=== PATIENT | female | born 1945 | race Caucasian/White ===

== ENCOUNTER 2023-12-10 12:31 | Outpatient (REF) | payer MEDICARE, SELFPAY ==
--- NOTE | ~2023-12-10 | US_ITS ---
EXAMINATION: VenaSeal ablation right GSV CLINICAL INFORMATION: Symptomatic varicose veins in the right lower extremity. Symptoms include pain and edema (C4) COMPARISON: Venous insufficiency ultrasound performed at outside institution demonstrating clinically significant reflux of a dilated right GSV TECHNIQUE/FINDINGS: Details of the procedure and possible complications were explained to the patient informed consent was obtained. Preprocedure time out was performed. The patient was placed supine on the procedure table. A preliminary ultrasound was performed which demonstrated dilated greater saphenous vein (GSV). A site was marked on the right medial leg below the knee. The right leg was sterily prepped and draped. 1% lidocaine was administered for local anesthesia. A puncture was made into the GSV below the knee with a 21 gauge micropuncture needle under continuous ultrasound guidance with permanent recordings and direct visualization of the needle entry into the vein lumen. The needle was exchanged for a coaxial dilator over a 0.018 guidewire. The inner dilator and 0.018 guidewire were removed and a 0.035 guidewire was advanced to the saphenofemoral junction (SFJ). The outer dilator was then exchanged for the 4 Fr VenaSeal catheter which was positioned approximately 12 cm from the SFJ. At this point the glue was delivered along the length of the GSV in aliquots while retracting the catheter/delivery device and applying forward compression. Total delivery length was 35 cm. The catheter/delivery device was removed and hemostasis was achieved with manual compression. A sterile dressing was applied. The patient tolerated the procedure well. . US/US venaseal vein closure IMPRESSION: Varithena Ablation of RIGHT GSV Follow-up ultrasound in 5-10 days. Anticipate staged intervention of bilateral lower extremity varicose veins
[2023-12-10] MEDS: Lidocaine HCl 1 % MPF 5 ML VIAL SUBCUT (14:59)
== END 2023-12-10 12:32 | disposition home or self-care (01) ==
LOC: HO.US 12:31
PROVIDERS: PCP Nurse Practitioner Family; Visit Provider Student in an Organized Health Care Education/Training Program
DX: R22.41 Localized swelling, mass and lump, right lower limb (principal); I83.11 Varicose veins of right lower extremity with inflammation
CPT/HCPCS: 36482

== ENCOUNTER → 2023-12-10 12:36 | Outpatient (BNV) | payer MEDICARE, SELFPAY | PROVIDERS: PCP Nurse Practitioner Family; Visit Provider Student in an Organized Health Care Education/Training Program | DX: I83.811 Varicose veins of right lower extremity with pain (principal) | CPT/HCPCS: 36482 ==

== ENCOUNTER 2024-02-26 15:59 | Outpatient (AMB) | payer MEDICARE, SELFPAY ==
--- NOTE | 2024-02-26 16:19 | AM.OFFWIN_ITS ---
Intake Vital Signs 02/26/24 16:20 Height 4 ft 11 in Weight 143 lb BMI 28.9 BP 146/90 H Blood Pressure Location Lt brachial Position Sitting Pulse 64 Pulse Source Pulse Oximeter Temp 98.3 F Temp Source Oral Pulse Oximetry (%) 96 Oxygen Delivery Method Room Air Intake Visit Reasons: EP-breathing problem Intake Note: pt c/o SOB. Ongoing. Worse at night Patient Tobacco Use Status: Former Tobacco user Allergies acetaminophen [From Percocet] Allergy (Intermediate, Verified 02/26/24 16:26) Weakness oxycodone [From Percocet] Allergy (Intermediate, Verified 02/26/24 16:26) Weakness Sulfa (Sulfonamide Antibiotics) Allergy (Intermediate, Verified 02/26/24 16:26) Rash sulfamethoxazole [From Bactrim] Allergy (Mild, Verified 02/26/24 16:26) Rash trimethoprim [From Bactrim] Allergy (Mild, Verified 02/26/24 16:26) Rash diphenhydramine [From Benadryl] Adverse Reaction (Intermediate, Verified 02/26/24 16:26) Palpitations Do you need a note to return to daycare/school/sports/work: No HPI HPI Comments History of Present Illness Details Patient is an 79-year-old female with a past medical history of COPD on Advair complaining of shortness of breath which has been getting worse over the last few days. She admits to also having a cough. She states she has been taki ng her Advair twice daily and uses albuterol inhaler as needed. She does see a sales marketing coordinator, Dr. Bass. She denies any fevers, head congestion, headaches, fatigue, sinus pain or ear pain. [facility] Social History Patient Tobacco Use Status: Former Tobacco user Review of Systems Const All systems reviewed & are unremarkable except as noted in HPI and below Physical Exam Vital Signs: Last Vital Signs Temp 98.3 F 02/26/24 16:20 Pulse 64 02/26/24 16:20 BP 164/90 H 02/26/24 16:20 Pulse Ox 96 02/26/24 16:20 Oxygen Delivery Method Room Air 02/26/24 16:20 BMI result Body Mass Index 28.9 Const General: cooperative, healthy appearing, comfortable and no acute distress Orientation/consciousness: patient oriented x3 Limitations: no limitations HEENT Head: Yes normal to inspection Ears: hearing grossly normal bilaterally and external ears normal General nose exam: Normal external nose present, Normal nares present and No nasal discharge present Face and sinus: Yes normal facial exam and Yes sinuses nontender Mouth: Normal oral and palatal mucosa present and moist mucous membranes Throat: Yes tonsils normal, Yes uvula midline and Yes posterior oropharynx abnormal (Erythema) Eyes General: appearance normal, both eyes and all related structures Neck Neck: Yes normal visual inspection Resp Effort & Inspection: normal respiratory effort, able to speak in complete sentences, Actively coughing, no respiratory distress, not tachypneic, no tripod positioning and no use of accessory muscles Auscultation: wheezes expiratory wheezes Cardio Rate: regular rate Rhythm: regular rhythm Heart sounds: normal S1 and S2 Skin General skin exam: no rashes or lesions noted Neuro General: patient oriented x3 Extrem General: Yes normal to inspection and Yes no clubbing, cyanosis or edema Assessment & Plan Assessment & Plan (1) URI (upper respiratory infection): Code(s): J06.9 - Acute upper respiratory infection, unspecified Qualifiers: URI type: unspecified URI Qualified Code(s): J06.9 - Acute upper respiratory infection, unspecified Plan: We will send prednisone to pharmacy as well as an extra inhaler. Getting chest x-ray, may add azithromycin depending on what that looks like. Plan See above Orders: Orders XR chest 2V Today R05.9 - Cough, unspecified Medications: New prednisone 40 mg (2 x 20 mg) PO DAILY 10 tabs 0RF albuterol sulfate 90 mcg/actuation 2 puffs inhalation Q6H PRN 8.5 grams 0RF shortness of breath or wheezing or cough Coding Level of Care Code New Pt Level 4 (74489) Diagnoses Upper respiratory tract infection, unspecified type J06.9 URI type: unspecified URI
[2024-02-26 16:20] VITALS: BP 146/90; PULSE 64; TEMP 36.8; O2SAT 96; BMI 28.9
== END 2024-02-26 16:43 | disposition home or self-care (01) ==
PROVIDERS: PCP Nurse Practitioner Family; Visit Provider Physician Assistant
DX: J06.9 Acute upper respiratory infection, unspecified (principal)
CPT/HCPCS: 99204

== ENCOUNTER 2024-02-26 16:37 | Outpatient (REF) | payer MEDICARE, SELFPAY ==
--- NOTE | ~2024-02-26 | XR_ITS ---
EXAMINATION: XR CHEST CLINICAL INFORMATION: Cough COMPARISON: None available. TECHNIQUE: 2 views of the chest were obtained. FINDINGS: The lungs are adequately expanded. No focal consolidation. Suggestion of mild bronchial wall thickening. Mild blunting of the left costophrenic angle. No right-sided pleural effusion. No pneumothorax. The cardiac mediastinal silhouette is within normal limits. Aortic calcifications. Age-indeterminate mild compression deformities of lower thoracic vertebral bodies. Degenerative changes of the thoracic spine. XR/XR chest 2V IMPRESSION: No focal consolidation. Suggestion of mild bronchial wall thickening which can be seen with reactive airways disease. Probable trace left pleural effusion. Age-indeterminate mild compression deformities of lower thoracic vertebral bodies. Electronically signed by: Jose Walker MD 02/27/2024 08:49 AM EDT
== END 2024-02-26 16:38 | disposition home or self-care (01) ==
LOC: HO.HMGCX 16:37
PROVIDERS: PCP Nurse Practitioner Family; Visit Provider Physician Assistant
DX: R05.9 Cough, unspecified (principal)
CPT/HCPCS: 71046

== ENCOUNTER 2024-07-05 12:59 | Outpatient (AMB) | payer MEDICARE, SELFPAY ==
--- NOTE | 2024-07-05 13:25 | AM.OFFWIN_ITS ---
Intake Vital Signs 07/05/24 13:26 Weight 148 lb BP 128/76 Blood Pressure Location Rt brachial Position Sitting Pulse 62 Pulse Source Pulse Oximeter Pulse Oximetry (%) 92 Oxygen Delivery Method Room Air Intake Visit Reasons: EP LT side pain Intake Note: Patient here for left side pain that radiates to the back which has been going on for about 1 week and worsening. Patient Tobacco Use Status: Former Tobacco user Allergies acetaminophen [From Percocet] Allergy (Intermediate, Verified 02/26/24 16:26) Weakness oxycodone [From Percocet] Allergy (Intermediate, Verified 02/26/24 16:26) Weakness Sulfa (Sulfonamide Antibiotics) Allergy (Intermediate, Verified 02/26/24 16:26) Rash sulfamethoxazole [From Bactrim] Allergy (Mild, Verified 02/26/24 16:26) Rash trimethoprim [From Bactrim] Allergy (Mild, Verified 02/26/24 16:26) Rash diphenhydramine [From Benadryl] Adverse Reaction (Intermediate, Verified 02/26/24 16:26) Palpitations HPI EP LT side pain HPI Details Patient is an 79-year-old female with COPD, nephrolithiasis, and hypertension, who comes to the walk-in clinic complaining of left flank pain for about a week now. She is eating fine, and denies urinary symptoms (including no hematuria visible), nausea vomiting or diarrhea, abdominal or pelvic pain, fever or chills, myalgias or malaise, dizziness or weakness, chest pain or shortness of breath, or other significant associated symptoms. [facility] Social History Patient Tobacco Use Status: Former Tobacco user Review of Systems Const All systems reviewed & are unremarkable except as noted in HPI and below Physical Exam Vital Signs: Last Vital Signs Pulse 62 07/05/24 13:26 BP 128/76 07/05/24 13:26 Pulse Ox 92 07/05/24 13:26 Oxygen Delivery Method Room Air 07/05/24 13:26 Const General: cooperative, healthy appearing, comfortable, no acute distress, alert, awake, Physically active and well groomed; No anxious, diaphoretic, ill appearing, intoxicated appearing, poor hygiene or tired appearing Limitations: no limitations Chest Chest palpation & inspection: normal palpation of entire chest wall Resp Effort & Inspection: normal respiratory effort, able to speak in complete sentences, no audible wheezes, no cough, no grunting, not labored, no nasal flaring, no retractions and symmetric chest movement Auscultation: clear to auscultation bilaterally, no crackles, no rales, no rhonchi, no wheezes, lung sounds not diminished and No rub present Cardio Palpation: normal PMI Rate: regular rate Rhythm: regular rhythm Heart sounds: S1 normal heart sound present and S2 normal heart sound present GI Inspection: Yes normal to inspection Palpation (GI): Tenderness to palpation present (GI) (left lateral flank), No hepatosplenomegaly present and no masses General: Yes CVA tenderness Back/Spine/Pelvis Back: CVA tenderness Thoracic/Lumbar Spine: thoracic and lumbar spine normal to inspection Skin Other: Good color, warm and dry Psych Appearance: grossly normal Mental Status: mental status grossly normal Speech and movement: Normal speech and movement present Affect: normal affect Attitude: cooperative Thought process: Normal thought process present Insight: Good insight present (Psych) Judgement: Good judgement present (Psych) Results AMB Urinalysis, Automated UA Leukoctes 0 Jame/uL Last Edit by SarinaOfelia Tolliver [facility] on 07/05/24 14:17 UA Nitrite Negative Last Edit by SarinaOfelia Tolliver [facility] on 07/05/24 14:17 UA Urobilinogen 0.2 mg/dL Last Edit by SarinaOfelia Tolliver [facility] on 07/05/24 14:17 UA Protein 0 mg/dL Last Edit by Nikole Tolliver [facility] on 07/05/24 14:17 UA pH 5.5 Last Edit by Nikole Tolliver [facility] on 07/05/24 14:17 UA Blood 0 Jeremy/uL Last Edit by SarinaOfelia Tolliver [facility] on 07/05/24 14:17 UA Specific [place] 1.030 Last Edit by SarinaOfelia Tolliver [facility] on 07/05/24 14:17 UA Ketone Negative Last Edit by SarinaOfelia Tolliver [facility] on 07/05/24 14:17 UA Bilirubin 1 mg/dL Last Edit by SarinaOfelia Tolliver [facility] on 07/05/24 14:17 UA Glucose 0 mg/dL Last Edit by ATIF Garcia on 07/05/24 14:17 Results Reviewed Results Reviewed: Laboratory Last Values Urine pH (Auto) 5.5 07/05/24 14:16 Specific [place] (Auto) 1.030 07/05/24 14:16 Urine Protein (Auto) 0 mg/dL 07/05/24 14:16 Glucose (UA)(Auto) 0 mg/dL 07/05/24 14:16 Urine Ketones (Auto) Negative 07/05/24 14:16 Urine Blood (Auto) 0 Jeremy/uL 07/05/24 14:16 Urine Nitrite (Auto) Negative 07/05/24 14:16 Urine Bilirubin (Auto) 1 mg/dL 07/05/24 14:16 Urine Urobilinogen (Auto) 0.2 mg/dL 07/05/24 14:16 Leukocyte Esterase (Auto) 0 Jame/uL 07/05/24 14:16 Unremarkable urine dip Assessment & Plan Assessment & Plan (1) Left flank pain: Code(s): R10.9 - Unspecified abdominal pain Plan Patient is an 79-year-old female comes to the walk-in clinic complaining of a week of left flank and left CVA tenderness. She does have history of nephrolithiasis and we discussed that quite possible that she is experiencing pain from a stone. Plain film KUB showed no obvious stone or acute abnormality. We also did chest x-ray, as she has a chest CT pending soon to evaluate the area further as she was told she had an abnormal plain film chest x-ray. On my read, there were no obvious acute cardiopulmonary issues, and this was consistent with the radiologist's STAT read. Her vital signs are stable and other than the discomfort, she is eating well, has normal bowel movements, and has no other associated symptoms. Her urine dip was unremarkable, but we will send out for lab urinalysis and reflex microscopy. Unlikely this is pyelonephritis, but to be safe I also ordered a CBC and CMP that she can get drawn for today. She was advised to call her urologist on Sunday and try to be seen there. In the meantime she can trial cyclobenzaprine in case this is just a muscle strain, and she should monitor symptoms and go to the emergency department if she develops anything worrisome. Orders: Orders XR KUB 07/05/24 R10.9 - Unspecified abdominal pain UA CC w/rflx Micro + Cult 07/05/24 R10.9 - Unspecified abdominal pain, R30.0 - Dysuria XR chest 2V 07/05/24 R05.9 - Cough, unspecified AMB Urinalysis Automated 07/05/24 Z13.9 - Encounter for screening, unspecified Comprehensive Met. Panel 07/05/24 R10.9 - Unspecified abdominal pain Complete Blood Count Auto Diff 07/05/24 R10.9 - Unspecified abdominal pain Medications: New cyclobenzaprine can take a second dose, to 10mg three times a day 5 mg PO TID 20 tabs 0RF muscle spasm Coding Level of Care Code Est Pt Level 4 (34442) Diagnoses Left flank pain R10.9
[2024-07-05 13:26] VITALS: BP 128/76; PULSE 62; O2SAT 92
== END 2024-07-05 14:52 | disposition home or self-care (01) ==
PROVIDERS: PCP Nurse Practitioner Family; Visit Provider Physician Assistant Medical
DX: Z13.9 Encounter for screening, unspecified (principal)

== ENCOUNTER 2024-07-05 12:59 | Outpatient (REF) | payer MEDICARE, SELFPAY ==
--- NOTE | ~2024-07-05 | XR_ITS ---
CLINICAL HISTORY: R10.9 - Unspecified abdominal pain Abdominal radiograph Comparison: None Findings: There is a nonobstructive bowel gas pattern. Stool quantity is normal. No pneumoperitoneum or pneumatosis. No acute osseous or soft tissue abnormality. Impression: No acute findings. This document has been electronically signed by: Lynne Rodriguez MD on 07/05/2024 14:39:16
--- NOTE | ~2024-07-05 | XR_ITS ---
CLINICAL HISTORY: R05.9 - Cough, unspecified Chest Radiographs, 2 views Comparison: None Findings: No cardiomegaly. Normal mediastinal contours. No pneumothorax. No opacity. No pleural effusion. Normal upper abdomen. No acute fracture. Impression: No acute findings. This document has been electronically signed by: Lynne Rodriguez MD on 07/05/2024 14:18:03
[2024-07-05 15:36] LABS: MANUAL DIFF FLAG NO
[2024-07-05 15:43] LABS: Basophils Absolute Auto 0.1 X10*3/uL (0.0-0.2); Basophils Percent Auto 1.3 % (0-2); Eosinophils Absolute Auto 0.3 X10*3/uL (0.0-0.4); Eosinophils Percent Auto 4.6 % (0-4); Hematocrit 43.2 % (37.0-47.0); Hemoglobin 14.2 g/dl (12.0-16.0); Imm Gran Abs Auto 0.04 X10*3/uL (0.00-0.03); Imm Gran Pct Auto 0.6 % (0.0-0.4); Lymphocytes Absolute Auto 1.6 X10*3/uL (1.2-4.9); Lymphocytes Percent Auto 22.1 % (20-40); Mean Corpuscular HGB Conc 32.9 g/dl (31.0-35.0); Mean Corpuscular Hemoglobin 29.8 pg (27.0-33.0); Mean Corpuscular Volume 90.6 fL (80.0-98.0); Mean Platelet Volume 8.8 fL (9.4-12.3); Monocytes Absolute Auto 0.6 X10*3/uL (0.1-1.2); Monocytes Percent Auto 8.7 % (2-11); Neutrophils Absolute Auto 4.5 x10*3/uL (2.0-8.3); Neutrophils Percent Auto 62.7 % (45-73); Platelet Count 313 X10*3/uL (160-400); Red Blood Count 4.77 X10*6/uL (4.20-5.50); Red Cell Distribution Width 13.7 % (11.0-16.0); White Blood Count 7.1 X10*3/uL (4.8-10.8)
[2024-07-05 16:03] LABS: Alanine Aminotransferase 58 U/L (0-31); Anion Gap 12 (12-20); Aspartate Amino Transferase 53 U/L (5-31); Blood Urea Nitrogen 16 mg/dL (9-16); Calcium 9.7 mg/dL (8.4-10.2); Carbon Dioxide 29 mmol/L (22-29); Chloride 106 mmol/L (96-108); Estimated Glomerular Filt Rate 58; Glucose Random 76 mg/dL (60-115); Sodium 143 mmol/L (135-145); Total Protein 7.1 g/dL (6.5-8.0)
[2024-07-05 16:26] LABS: Alkaline Phosphatase 83 U/L (39-117); Bilirubin Total 0.8 mg/dL (0.0-1.0)
== END 2024-07-05 13:00 | disposition home or self-care (01) ==
LOC: HO.HMGCX 12:59
PROVIDERS: PCP Nurse Practitioner Family; Visit Provider Physician Assistant Medical
DX: R10.9 Unspecified abdominal pain (principal); R30.0 Dysuria; R05.9 Cough, unspecified; Z87.442 Personal history of urinary calculi
CPT/HCPCS: 36415; 71046; 74018; 80053; 81003; 85025; 99212

== ENCOUNTER → 2024-07-05 13:49 | Outpatient (BNV) | payer MEDICARE, SELFPAY | PROVIDERS: PCP Nurse Practitioner Family; Visit Provider Radiology Diagnostic Radiology | DX: R05.9 Cough, unspecified (principal); R10.9 Unspecified abdominal pain; R14.0 Abdominal distension (gaseous) | CPT/HCPCS: 71046; 74018 ==

== ENCOUNTER 2024-09-20 11:25 | Outpatient (AMB) | payer MEDICARE, SELFPAY ==
[2024-09-20 11:32] VITALS: BP 126/80; PULSE 76; RESP 15; TEMP 37.4; O2SAT 95; BMI 29.1
--- NOTE | 2024-09-20 11:32 | AM.OFFWIN_ITS ---
Intake Vital Signs 09/20/24 11:32 Height 4 ft 11 in Weight 144 lb BMI 29.1 BP 126/80 Blood Pressure Location Lt brachial Position Sitting Respiration 15 Pulse 76 Pulse Source Pulse Oximeter Temp 99.3 F Temp Source Oral Pulse Oximetry (%) 95 Oxygen Delivery Method Room Air Intake Visit Reasons: EP-abd pain Intake Note: Pt is here today c/o abdominal pain, especially when moving her bowels x1week Patient Tobacco Use Status: Former Tobacco user Allergies acetaminophen [From Percocet] Allergy (Intermediate, Verified 09/20/24 11:51) Weakness oxycodone [From Percocet] Allergy (Intermediate, Verified 09/20/24 11:51) Weakness Sulfa (Sulfonamide Antibiotics) Allergy (Intermediate, Verified 09/20/24 11:51) Rash sulfamethoxazole [From Bactrim] Allergy (Mild, Verified 09/20/24 11:51) Rash trimethoprim [From Bactrim] Allergy (Mild, Verified 09/20/24 11:51) Rash diphenhydramine [From Benadryl] Adverse Reaction (Intermediate, Verified 09/20/24 11:51) Palpitations Medication List - Last Reconciled 09/20/24 by Tiffany Bee, [facility]- albuterol sulfate 90 mcg/actuation 2 puffs inhalation Q6H PRN amlodipine 10 mg PO DAILY ezetimibe 10 mg PO DAILY fluoxetine 40 mg PO DAILY fluticasone propion-salmeterol 250-50 mcg/dose (Advair Diskus) 1 inh inhalation BID levothyroxine 137 mcg PO DAILY lisinopril 40 mg PO DAILY HPI HPI Comments History of Present Illness Details 79 y/o F with CKD3, nephrolithiasis & el evated LFTs here presenting with abdominal pain. - Abdominal discomfort started a week ag o, initially thought to be constipation, and is particularly severe at a 10/10 pain level. - She describes alterations in bowel mov ement consistency. This am her BM was just water and some mucous - A fever was noted to reach 101?F, yest erday but is currently slightly lowered to 99.5?F. - The patient maintains normal urination . - Denies n/v, blood in stools. - Reports abd bloating for the last sergio h or so, worse since onset. - When coming here, friend drover her, e xperienced worsening abd pain when going over bumps in the road. - decreased appetite, poor po intake PCP: Ilene in [place] on [address] Prefers [facility] Exam Awake alert NAD Scleras nonicteric bilat Halitosis Mucous membranes dry Abd bloated, tender w/ light palp over RUQ, epigastrum and LLQ, + peritoneal signs Results - Labs: Significant for CKD3 and elevate d liver function tests 06/2024 - Imagin06/2024 Previous X-ray of the Kidneys, Ureters, and Bladder (KUB) was normal; Chest X-ray was negative for acute findings. Discussion Notes I discussed with the patient the necessity of further diagnostic evaluation due to persistent abdominal pain and the presence of fever and tenderness, which are concerning for potential intra-abdominal pathology. I expressed the need for a more detailed imaging study, likely a CT scan of the abdomen, to better understand the underlying condition. The potential outcomes and necessity of this intervention were outlined, emphasizing the importance of arriving at a prompt diagnosis to provide appropriate treatment. The importance of fasting prior to the imaging was explained to ensure high-quality results. Transport via private vehicle w/ expect call. Follow-up with the primary care provider after hospital evaluation was advised. Assessment and Plan 1. Abdominal Pain: Given the severe abdo ethan pain and associated symptoms, ED eval and tx required. Patient Instructions - Proceed directly to the hospital for further evaluation of your symptoms. - Do not eat or drink anything before th e CT scan to ensure clear imaging. - Follow up with your primary care provi jose after the hospital visit to review findings and future care plan. - Be sure to inform the hospital staff t hat you have been evaluated at the walk- in clinic and are coming based on a medical recommendation. Consent Patient was informed and verbally consented to the use of an ambient scribe for clinic note documentation during this visit. Total time spent caring for the patient today was 30 minutes. This includes time spent before the visit reviewing the chart, time spent during the visit, and time spent after the visit on documentation, reviewing laboratory results, diagnostic imaging, medications, performing a medically necessary evaluation, counseling on diagnoses, care coordination, ordering appropriate tests, ordering appropriate medications, review of tests performed by other providers, reporting test results with the patient, communication with other healthcare providers. [facility] Social History Patient Tobacco Use Status: Former Tobacco user Physical Exam Vital Signs: Last Vital Signs Temp 99.3 F 09/20/24 11:32 Pulse 76 09/20/24 11:32 Resp 15 09/20/24 11:32 BP 126/80 09/20/24 11:32 Pulse Ox 95 09/20/24 11:32 Oxygen Delivery Method Room Air 09/20/24 11:32 BMI result Body Mass Index 29.1 Results Reviewed Results Reviewed: [facility] [place] [address] XRay Report Signed Patient: Yocasta Jean MR#: [id number] : 1945 Acct:[id number] Age/Sex: 79 / F ADM Date: 07/05/24 Loc: HO.HMGCX Attending Dr: Christianne FRITZ Ordering Physician: Christianne Campoverde Date of Service: 07/05/24 Procedure(s): XR KUB Accession Number(s): [id number] cc: ILENE ESQUIVEL PAD ASSEMBLER; Christianne Campoverde~ CLINICAL HISTORY: R10.9 - Unspecified abdominal pain Abdominal radiograph Comparison: None Findings: There is a nonobstructive bowel gas pattern. Stool quantity is normal. No pneumoperitoneum or pneumatosis. No acute osseous or soft tissue abnormality. Impression: No acute findings. This document has been electronically signed by: Lynne Rodriguez MD on 07/05/2024 14:39:16 RUN: 09/20/24 1208 PAGE 1 [facility] [address] [place] [id number] First Mate: Gianfranco Galvez M.D. Specimen Inquiry Name: Yocasta Jean Age/Sex: 79/F : 1945 Unit#: [id number] Attend Dr: Christianne Campoverde Re07/05/24 Status: DEP REF Location: [facility] Disch: SPEC : [id number] YANA: 07/05/24 STATUS: COMP REQ : [id number] RECD: 07/05/24-[address]: Christianne Campoverde COMP: 07/05/24 ENTERED: 07/05/[address]: ILENE ESQUIVEL PAD ASSEMBLER ORDERED: CMP Test Result Flag Reference Sodium 143 135-145 mmol/L Potassium 4.0 3.3-5.1 mmol/L CL 106 96-108 mmol/L CO2 29 22-29 mmol/L Gap 12 12-20 BUN 16 9-16 mg/dL Creat 0.93 0.5-1.4 mg/dL eGFR 58 Chronic Kidney Disease: Estimated GFR < 60 mL/min/1.73m2 Severe Kidney Disease: Estimated GFR < 15 mL/min/1.73m2 Glucose, Random 76 60-115 mg/dL CA 9.7 8.4-10.2 mg/dL Total Bili 0.8 0.0-1.0 mg/dL AST (GOT) 53 H 5-31 U/L ALT (GPT) 58 H 0-31 U/L Protein, Total 7.1 6.5-8.0 g/dL Alb 4.0 3.5-5.0 g/dL Alk Phos 83 39-117 U/L Assessment & Plan Assessment & Plan (1) Acute abdominal pain: Code(s): R10.9 - Unspecified abdominal pain (2) Change in bowel habits: Code(s): R19.4 - Change in bowel habit Plan . Coding Level of Care Code Est Pt Level 4 (47052) Diagnoses Acute abdominal pain R10.9 Change in bowel habits R19.4
== END 2024-09-20 12:34 | disposition home or self-care (01) ==
LOC: HO.HMCWIC 11:25
PROVIDERS: PCP Nurse Practitioner Family; Visit Provider Nurse Practitioner Family
DX: R10.9 Unspecified abdominal pain (principal); R19.4 Change in bowel habit

== ENCOUNTER → 2024-09-20 11:25 | Outpatient (BNVA) | payer MEDICARE, SELFPAY | PROVIDERS: PCP Nurse Practitioner Family; Visit Provider Nurse Practitioner Family | DX: R10.9 Unspecified abdominal pain (principal); R19.4 Change in bowel habit | CPT/HCPCS: 99212 ==